=== PATIENT | female | born 1980 | race Caucasian/White ===

== ENCOUNTER 2018-04-30 15:57 | Emergency (ER) | payer OTHER ==
[~2018-04-30] VITALS: Ht 167.6 cm; Wt 89.0 kg
[~2018-04-30 15:57] MED LIST: PREN-88 PO; [UNRECOGNIZED DRUG - REMARK]
[2018-04-30 18:10] LABS: CHLORIDE 105 mEq/L (98-107)
[2018-04-30 18:24] LABS: BASOPHILS % 0.5 % (0.0-2.0); EOSINOPHILS % 4.1 % (0.0-5.0); HEMATOCRIT. 41.3 % (36.0-48.0); HEMOGLOBIN. 13.8 g/dL (12.0-16.0); MEAN CORPUSCULAR VOLUME 89.5 fL (81.0-99.0); MEAN PLATELET VOLUME 7.8 fl (7.4-10.4); MONOCYTES % 7.4 % (2.0-8.0); PLATELET 299 x1000/uL (130-400); RED BLOOD CELL COUNT 4.61 mill/uL (4.2-5.4); RED CELL DISTRIBUTION WIDTH 13.1 % (11.6-14.6)
[2018-04-30 20:07] VITALS: BP 123/82
== END 2018-05-01 00:22 | disposition home or self-care (01) ==
LOC: ER 23:41
DX: I83.892 Varicose veins of left lower extremity with other complications (principal); R58 Hemorrhage, not elsewhere classified; I10 Essential (primary) hypertension; E66.9 Obesity, unspecified; F17.200 Nicotine dependence, unspecified, uncomplicated; Z68.31 Body mass index [BMI] 31.0-31.9, adult
CPT/HCPCS: 36415; 99283

== ENCOUNTER 2023-10-06 01:42 | Emergency (ER) | payer OTHER ==
[~2023-10-06] VITALS: Ht 162.6 cm; Wt 100.0 kg
[2023-10-06 01:46] VITALS: BP 163/85; PULSE 100; RESP 12; TEMP 98.1; O2SAT 98
[2023-10-06] MEDS ORDERED: FLUORESCEIN SODIUM 1MG/STRIP LEFTEYE ONE (02:15)
[2023-10-06] MEDS ORDERED: BALANCED SALT IRRIG SOLN 15ML IR ONE (02:15)
[2023-10-06] MEDS ORDERED: TETRACAINE 0.5% OPHTH DROPS 4ML LEFTEYE ONE (02:15)
[2023-10-06] MEDS ORDERED: ACETAMINOPHEN 325MG TABLET PO STA (02:23)
[2023-10-06] MEDS ORDERED: ACETAMINOPHEN 325MG TABLET PO NR (02:45)
[2023-10-06] MEDS ORDERED: ERYTHROMYCIN BASE 0.5% OPHTH OINT 3.5GM LEFTEYE NR (03:30)
[2023-10-06] MEDS ORDERED: ERYT1OIN6 LEFTEYE (03:31)
[2023-10-06] MEDS ORDERED: ACET-2708 PO (03:31)
== END 2023-10-06 04:05 | disposition home or self-care (01) ==
LOC: ER 01:48
DX: T15.82XA Foreign body in other and multiple parts of external eye, left eye, initial encounter (principal); T26.92XA Corrosion of left eye and adnexa, part unspecified, initial encounter; X58.XXXA Exposure to other specified factors, initial encounter; Y93.89 Activity, other specified; Y92.89 Other specified places as the place of occurrence of the external cause; Y99.8 Other external cause status
CPT/HCPCS: 99283

== ENCOUNTER 2024-04-19 13:12 | Emergency (ER) | payer MEDICAID ==
[~2024-04-19] VITALS: Ht 162.6 cm; Wt 73.0 kg
[~2024-04-19 13:12] MED LIST changes: +ACET-2708 PO; +ERYT1OIN6 LEFTEYE
[2024-04-19 13:28] VITALS: BP 109/69; PULSE 104; RESP 16; TEMP 97.3; O2SAT 100
[2024-04-19] MEDS ORDERED: albuterol (13:28)
[2024-04-19] MEDS ORDERED: P20 PO (13:50)
[2024-04-19] MEDS ORDERED: NAPR-1495 MT (13:50)
[2024-04-19] MEDS ORDERED: ALBU18HF2 IH (13:50)
== END 2024-04-19 14:25 | disposition home or self-care (01) ==
LOC: ER 13:12
DX: J06.9 Acute upper respiratory infection, unspecified (principal); B97.89 Other viral agents as the cause of diseases classified elsewhere; J45.909 Unspecified asthma, uncomplicated; Z79.1 Long term (current) use of non-steroidal anti-inflammatories (NSAID); Z79.52 Long term (current) use of systemic steroids
CPT/HCPCS: 99283; Z7610

== ENCOUNTER 2024-10-14 23:05 | Emergency (ER) | payer MEDICAID ==
[~2024-10-14] VITALS: Ht 167.6 cm; Wt 77.0 kg
[~2024-10-14 23:05] MED LIST changes: +ALBU18HF2 IH; +NAPR-1495 MT; +P20 PO; +albuterol
[2024-10-14 23:10] VITALS: TEMP 36.9; O2SAT 95
[2024-10-14] MEDS: ONDANSETRON HCL 4MG/2ML INJ IV ONE (23:45)
[2024-10-14 23:46] LABS: BASOPHILS % 0.7 % (0.0-2.0); EOSINOPHILS % 8.1 % (0.0-5.0); HEMATOCRIT. 37.4 % (36.0-48.0); HEMOGLOBIN. 12.1 g/dL (12.0-16.0); LYMPHOCYTES % 18.4 % (20.0-50.0); MEAN CORPUSCULAR HEMOGLOBIN 28.4 pg (28.0-32.0); MEAN CORPUSCULAR HGB CONC 32.5 g/dL (31.0-37.0); MEAN CORPUSCULAR VOLUME 87.3 fL (81.0-99.0); MEAN PLATELET VOLUME 7.2 fl (7.4-10.4); MONOCYTES % 6.7 % (2.0-8.0); NEUTROPHILS % 66.1 % (40.0-76.0); PLATELET 372 x1000/uL (130-400); RED BLOOD CELL COUNT 4.28 mill/uL (4.2-5.4); RED CELL DISTRIBUTION WIDTH 14.5 % (11.6-14.6); WHITE BLOOD COUNT 11.5 x1000/uL (4.5-11.0)
[2024-10-14] MEDS: MORPHINE SULFATE 4 MG/ML INJ (FOR IV/IM USE) IV ONE (23:46)
[2024-10-14 23:47] LABS: CHLORIDE 107 mEq/L (98-107); POTASSIUM 4.3 mEq/L (3.5-5.1); SODIUM 139 mEq/L (136-145)
[2024-10-14 23:48] LABS: CARBON DIOXIDE 25 mEq/L (21-32)
[2024-10-14 23:49] LABS: CALCIUM 9.5 mg/dL (8.7-10.4)
[2024-10-14 23:52] LABS: HCG SCREEN NEGATIVE
[2024-10-14 23:53] LABS: CREATININE 0.8 mg/dL (0.6-1.0); GLUCOSE 112 mg/dL (70-105)
[2024-10-14 23:54] LABS: ETHANOL BLOOD < 10 mg/dL (<10); PROTHROMBIN TIME 10.3 sec (9.6-11.0); UREA NITROGEN BLOOD 19 mg/dL (9-23)
[2024-10-14] MEDS: LACTATED RINGERS 1,000 ML IV ONE (23:57)
[2024-10-15] MEDS: BACITRACIN 14GM TUBE TOP ONE
[2024-10-15] MEDS ORDERED: IBUP-2029 MT (00:17)
[2024-10-15] MEDS ORDERED: BO1 TP (00:17)
[2024-10-15 02:15] VITALS: BP 105/65; PULSE 106; RESP 14; O2SAT 95
== END 2024-10-15 02:30 | disposition home or self-care (01) ==
LOC: ER 23:10
DX: T24.231A Burn of second degree of right lower leg, initial encounter (principal); J45.909 Unspecified asthma, uncomplicated; Z79.52 Long term (current) use of systemic steroids; Z79.1 Long term (current) use of non-steroidal anti-inflammatories (NSAID); Z79.899 Other long term (current) drug therapy; X58.XXXA Exposure to other specified factors, initial encounter; Y93.89 Activity, other specified; Y92.89 Other specified places as the place of occurrence of the external cause; Y99.8 Other external cause status
CPT/HCPCS: 80048; 80320; 84703; 85025; 85610; 36415; 16020; 96361; 96374; 96375; 99284; J2405; J2270; J7120; Z7610; G0480